=== PATIENT | male | born 1965 | race Caucasian/White ===

== ENCOUNTER → 2018-02-03 | Outpatient (CLI) | payer OTHER ==
--- NOTE | 2018-02-03 17:03 | US ---
EXAMINATION TYPE: US carotid duplex BILAT DATE OF EXAM: 02/03/2018 COMPARISON: NONE CLINICAL HISTORY: H53.9 VISUAL DISTURBANCE. Dizziness x 1 week ago. HTN controlled with meds. No hx of high cholesterol. EXAM MEASUREMENTS: RIGHT: Peak Systolic Velocity (PSV) cm/sec ----- Right CCA: 58.8 ----- Right ICA: 59.2 ----- Right ECA: 85.6 ICA/CCA ratio: 1.0 RIGHT: End Diastole cm/sec ----- Right CCA: 14.0 ----- Right ICA: 19.1 ----- Right ECA: 10.9 LEFT: Peak Systolic Velocity (PSV) cm/sec ----- Left CCA: 62.2 ----- Left ICA: 58.5 ----- Left ECA: 73.5 ICA/CCA ratio: 0.9 LEFT: End Diastole cm/sec ----- Left CCA: 15.0 ----- Left ICA: 18.8 ----- Left ECA: 5.4 VERTEBRALS (direction of flow): Right Vertebral: Antegrade Left Vertebral: Antegrade Rhythm: Normal Bilateral thickened carpio. No elevated velocities or significant stenosis. Plaque seen in left bulb. There is filling of the acoustic window within the internal carotid arteries compatible with turbulen t flow. The right common carotid artery and left internal common carotid artery have abnormal Doppler waveforms. IMPRESSION: 1. Flow-limiting stenosis based on velocities is not identified. Doppler waveforms however are abnorm al and more distal stenoses should be considered. Consider CTA neck and [place] of [place] for addition al evaluation. Criteria for Assigning % of Stenosis / Diameter reduction (Estimation based on the indirect measurements of the internal carotid artery velocities (ICA PSV). 1. Normal (no stenosis)=ICA PSV < 125 cm/s: ratio < 2.0: ICA EDV<40 cm/s. 2. Less than 50% stenosis=ICA PSV < 125 cm/s: ratio < 2.0: ICA EDV<40 cm/s. 3. 50 to 69% stenosis=ICA PSV of 125 to 230 cm/s: ration 2.0 ? 4.0: ICA EDV 40-100 cm/s. 4. Greater than 70% stenosis to near occlusion= ICA PSV > 230 cm/s: ratio > 4.0: ICA EDV > 100 cm/s. 5. Near occlusion= ICA PSV velocities may be low or undetectable: variable ratio and ICA EDV. 6. Total occlusion=unable to detect flow.
== END ==
LOC: RADUSWWP 10:01
PROVIDERS: ATTEND Family Medicine
DX: H53.9 Unspecified visual disturbance (principal)
CPT/HCPCS: 93880

== ENCOUNTER → 2018-04-06 | Outpatient (CLI) | payer OTHER ==
--- NOTE | 2018-04-06 13:01 | MR ---
EXAMINATION TYPE: MR angio head wo con DATE OF EXAM: 04/06/2018 COMPARISON: NONE HISTORY: Dizziness and giddiness TECHNIQUE: Time of flight images focusing on the [place] of [place] were performed without contrast.. 2-D and 3-D postprocessing imaging is performed on MRI scanner.. FINDINGS: There is nonvisualized distal right vertebral artery. This makes it difficult to identify b asilar artery origin. There is narrowing of suspected proximal basilar artery up to 1.6 mm transverse ly axial image 28 and down to 1.3 mm transversely axial image 37 with reconstitution to 1.8 mm distal ly. There are patent bilateral posterior cerebral arteries, left slightly smaller in caliber versus r ight. There are more superior patent bilateral posterior communicating arteries. No aneurysmal change is seen. Images of the anterior circulation show small caliber but patent anterior communicating artery. No an eurysmal change is seen. No significant focal stenosis is present. IMPRESSION: No aneurysmal change at the level of the [place] of [place]. 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
== END | disposition home or self-care (01) ==
LOC: RADMRIMAIN 11:53
PROVIDERS: ATTEND Family Medicine
DX: I65.1 Occlusion and stenosis of basilar artery (principal)
CPT/HCPCS: 70544

== ENCOUNTER → 2018-05-30 | Outpatient (CLI) | payer BC | END | disposition home or self-care (01) | LOC: LABWHC1 11:11 | PROVIDERS: ATTEND Psychiatry & Neurology Pain Medicine | DX: Z51.81 Encounter for therapeutic drug level monitoring (principal) | CPT/HCPCS: 36415; 82565; 84520 ==

== ENCOUNTER → 2020-03-14 | Outpatient (CLI) | payer BC ==
--- NOTE | 2020-03-14 19:00 | ECHOF ---
Referral Reason:R06.00 Dyspnea, unspecified MEASUREMENTS -------- HEIGHT: 172.7 cm WEIGHT: 117.9 kg BP: 152/77 RVIDd: 3.6 cm (< 3.3) IVSd: 1.4 cm (0.6 - 1.1) LVIDd: 3.4 cm (3.9 - 5.3) LVPWd: 1.4 cm (0.6 - 1.1) IVSs: 1.8 cm LVIDs: 2.3 cm LVPWs: 1.8 cm LA Diam: 3.4 cm (2.7 - 3.8) LAESV Index (A-L): 18.31 ml/m Ao Diam: 3.8 cm (2.0 - 3.7) AV Cusp: 2.2 cm (1.5 - 2.6) MV EXCURSION: 15.271 mm (> 18.000) MV EF SLOPE: 45 mm/s (70 - 150) EPSS: 0.6 cm MV E Chris: 0.69 m/s MV DecT: 197 ms MV A Chris: 0.62 m/s MV E/A Ratio: 1.11 FINDINGS -------- Sinus rhythm. This was a technically difficult study with suboptimal apical views. The left ventricular size is normal. There is moderate concentric left ventricular hypertrophy. O verall left ventricular systolic function is normal with, an EF between 55 - 60 %. The right ventricle is mildly enlarged. Normal LA size by volume 22+/-6 ml/m2. The right atrium is normal in size. Lumason used Interatrial and interventricular septum intact. The aortic valve is trileaflet and appears structurally normal. The mitral valve is normal. The tricuspid valve appears structurally normal. The pulmonic valve was not well visualized. The aortic root is dilated measuring 3.8cm. IVC Not well visulized. There is no pericardial effusion. CONCLUSIONS -------- 1. The left ventricular size is normal. 2. There is moderate concentric left ventricular hypertrophy. 3. The right ventricle is mildly enlarged. 4. Lumason used 5. The aortic root is dilated measuring 3.8cm. 6. There is no pericardial effusion. [employer] JUDGING COACH: Teresa Lewis RD
== END | disposition home or self-care (01) ==
LOC: RADECHMAIN 08:05
PROVIDERS: ATTEND Family Medicine
DX: I51.7 Cardiomegaly (principal); R06.00 Dyspnea, unspecified
CPT/HCPCS: 93306; Q9950